=== PATIENT | male | born 1985 | race Caucasian/White ===

== ENCOUNTER 2018-07-19 01:05 | Emergency (ER) | payer SELFPAY ==
[~2018-07-19] VITALS: Ht 175.3 cm; Wt 86.9 kg
[~2018-07-19 01:05] MED LIST: CEPH-443 PO
[2018-07-19 01:07] VITALS: BP 166/91; PULSE 102; RESP 20; Ht 175.3 cm; Wt 86.9 kg
== END 2018-07-19 04:50 | disposition left against medical advice (07) ==
LOC: FTE 01:05
DX: Z53.21 Procedure and treatment not carried out due to patient leaving prior to being seen by health care provider (principal)